=== PATIENT | female | born 1980 | race Caucasian/White ===

== ENCOUNTER 2019-06-03 16:22 | Outpatient (REF) | payer MEDICAID, SELFPAY ==
[2019-06-05 20:50] LABS: SARS-CoV-2 RNA Undetected (Undetected); SARS-CoV-2 Specimen Source Nasopharynx
== END 2019-06-03 16:42 ==
LOC: LBO 16:22
PROVIDERS: PCP Nurse Practitioner Family; Visit Provider Nurse Practitioner Family
DX: Z20.828 Contact with and (suspected) exposure to other viral communicable diseases (principal); J06.9 Acute upper respiratory infection, unspecified
CPT/HCPCS: U0003

== ENCOUNTER 2020-11-01 07:19 | Outpatient (CLI) | payer MEDICAID, SELFPAY ==
--- NOTE | 2020-11-01 08:30 | RT.EKG_ITS ---
APPROVED REPORT Exam: Resting ECG Reason for Exam: High Risk Medication Patient Location: O HR:76 bpm ECG Measurements Heart Rate 76 AXIS SD 139 P 56 QRSd 100 QRS -24 QT 369 T 37 QTc 416 Conclusion Sinus rhythm...normal P axis, V-rate 60- 99 Low voltage, precordial leads...precordial leads <1.0mV
== END 2020-11-01 07:20 | disposition home or self-care (01) ==
LOC: RT 07:58
PROVIDERS: PCP Nurse Practitioner Family; Visit Provider Family Medicine
DX: Z79.899 Other long term (current) drug therapy (principal)
CPT/HCPCS: 93005; 93010

== ENCOUNTER 2021-05-07 09:07 | Emergency (ER) | payer MEDICAID, SELFPAY ==
[2021-05-07 09:09] VITALS: BP 135/90; PULSE 96; RESP 14; TEMP 36.2; O2SAT 100
[2021-05-07] MEDS: ACETAMINOPHEN 1,000 MG/100 ML BTL 400 MG IVPB (09:30)
[2021-05-07] MEDS: Omnipaque 350 MG/ML 100 ML BTL IJ (09:36)
--- NOTE | 2021-05-07 09:36 | W.ED.GENAD ---
Discharge Plan Disposition Patient Disposition: HOME Condition: Stable Discharge Details Clinical Impression: Abscess, dental Primary Care Provider: Staci Ponce ED Provider: Beti Jamison Home Meds and New Rx's Prescriptions: New clindamycin HCl 150 mg capsule 450 mg PO TID Qty: 90 0RF Continued methadone [Methadone Intensol] 10 mg/mL Concentrate 105 mg PO DAILY 0RF Discharge Instructions Instructions: Dental Abscess (ED) Additional Instructions: Take the antibiotic, 3 tablets every 8 hours Gargle with warm salt water once an hour Light massage to your right cheek Call your dentist and let them know you have a large abscess and need to be reassessed this week If they are unable to see you, I given you a list of other resources Please return immediately with worsening difficulty opening your jaw, difficulty swallowing, fever, chest pain, or shortness of breath Ibuprofen and Tylenol for pain control Stand Alone Forms: Work Release Referrals: Staci Ponce, [employer] [Primary Care Provider] - 1 day Discharge Data Discharge Date/Time-TO BE ENTERED AT DEPARTURE: 05/07/21 11:21 Medical Decision Making Placed on clindamycin 450 mg 3 times daily Dental history CT results were reviewed, low suspicion for periorbital cellulitis suspect dental origin, attempt made to drain the site, approximately 1 cc fluid, blood-tinged noted Tolerated procedure without incident No proptosis, no crepitus Afebrile nontoxic, discharged home in stable condition with stable vitals Return precautions discussed and patient expressed understanding No evidence of [place]'s angina Medical Records Medical records reviewed: Yes I reviewed the patient's medical records. Lab Data Lab results reviewed: Yes I reviewed the patient's lab results. HPI General Date/Time Provider Initiated Documentation: 05/07/21 09:15. HPI Narrative: This 40-year-old female presents with reports of facial swelling and dental pain that began yesterday. She awoke with significant swelling to the right side of her face today. Patient denies any fever or chills. She took her methadone prior to arrival. Denies chance of . States she has pain but is able to open and close her jaw. Denies any difficulty swallowing or drooling. Otherwise reportedly healthy. Denies known injury. Denies chest pain or shortness of breath. Denies recent IV drug abuse. Related Data Home Medications Medication Instructions Recorded Confirmed clindamycin HCl 150 mg capsule 450 mg PO TID #90 cap 05/07/21 methadone 10 mg/mL oral 105 mg PO DAILY 05/07/21 05/07/21 concentrate (Methadone Intensol) Previous Rx's Medication Instructions Recorded clindamycin HCl 150 mg capsule 450 mg PO TID #90 cap 05/07/21 Allergies Allergy/AdvReac Type Severity Reaction Status Date / Time morphine Allergy Severe hives,mouth Unverified 05/07/21 09:12 and throat swell Sulfa (Sulfonamide Allergy Severe hives Unverified 05/07/21 09:12 Antibiotics) latex Allergy Intermediate rash Unverified 05/07/21 09:12 General Stated Complaint: DentalOral MUSTAPHA: 5 Review of Systems All systems reviewed & are unremarkable except as noted in HPI and below PFSH All Active Problems (Updated 05/07/21 @ 10:52 by BETTIE Garcia) Abscess, dental (Acute) Social History Smoking/Tobacco Use Status: Current every day Tobacco Type: cigarettes Smoking risk assessment performed?: Yes Alcohol Intake: never Drug use: Occasionally Substance use type: marijuana Do you feel safe at home: Yes Do you feel safe in your relationship?: Yes Exam Const General: cooperative and no acute distress [facility] Head images: 1. Swelling, no trismus, suspect to #6, widespread dental decay, no palpable fluctuance or evidence of soft palate induration, no drooling, uvula midline, right submandibular lymphadenopathy Neck Other: No stridor Resp Effort & Inspection: normal respiratory effort Cardio Rate: regular rate Course Vital Signs Vital signs: Vital Signs Temperature 36.2 C L 05/07/21 09:09 Pulse 96 H 05/07/21 09:09 Respiratory Rate 14 05/07/21 09:09 Blood Pressure 135/90 05/07/21 09:09 Pulse Oximetry 100 05/07/21 09:09 Temperature 36.2 C L 05/07/21 09:09 Temperature Source Temporal Artery Scan 05/07/21 09:09 Pulse 96 H 05/07/21 09:09 Respiratory Rate 14 05/07/21 09:09 Respiratory Effort Non-Labored 05/07/21 09:11 Blood Pressure 135/90 05/07/21 09:09 Blood Pressure Position Sitting 05/07/21 09:09 Pulse Oximetry 100 05/07/21 09:09 Oxygen Delivery Method Room Air 05/07/21 09:09 Oxygen Flow Rate 0 05/07/21 09:09 Pain Level 4 05/07/21 09:09 Procedures Abscess I/D Site: Other Side (if applicable): Right Local Anesthetic: Lidocaine 1% Amount of anesthesia used (mL): 1 Amount of fluid expressed (mL): 1
[2021-05-07 09:40] LABS: Abs Immature Grans 0.04 10^3/uL (0.0-0.06); Absolute Basophil Count 0.02 10^3/uL (0.0-0.2); Absolute Lymphocyte Count 3.46 10^3/uL (1.2-3.4); Absolute Monocyte Count 0.62 10^3/uL (0.1-0.8); Basophils % 0.2; Eosinophils % 2.7; HCT 43.6 % (36.0-46.0); Immature Grans % 0.4; Lymphocytes % 30.7; MCHC 32.1 % (32.0-36.0); MCV 96.7 fL (80-95); MPV 9.8 fL (8.0-11.0); Monocytes % 5.5; Neutrophils % 60.5; Nucleated RBC 0 %; Platelet Count 306 10^3/uL (130-400); RBC 4.51 10^6/uL (3.93-5.22); RDW 12.5 % (11.7-14.6); RDW-SD 44.5 fL; WBC 11.28 10^3/uL (4.4-10.8)
[2021-05-07 09:42] LABS: Absolute Neutrophil Count 6.82 10^3/uL (1.2-6.7)
[2021-05-07] MEDS: CLINDAMYCIN 900 MG/50 ML BAG 50 MG IVPB (09:53)
--- NOTE | 2021-05-07 09:53 | DI.CT_ITS ---
Exam(s) CT FACIAL W EXAM: CT FACIAL W CLINICAL HISTORY: right maxillary facial swelling extending to orbit. TECHNIQUE: Imaging Protocol: Axial computed tomography images with coronal and sagittal reformatted images were created and reviewed CONTRAST MATERIAL: Intravenous: Omnipaque 350 Contrast volume:100 mL COMPARISON: No exams were available for comparison FINDINGS: Facial Bones: No definite fracture is noted in facial bones. Poor dentition is present with multiple dental caries noted. An odontogenic origin cannot be entirely excluded. Please see below. Sinuses and Mastoids: Unremarkable. Globes, extraocular muscles, optic nerves and retrobulbar fat: Normal. Upper aerodigestive tract: Normal. Mandible and bilateral temporomandibular joints: Normal. Soft tissues: Limit or stranding is seen in the soft tissues lateral to the right masseter and right maxilla. No focal fluid collection is seen to suggest an abscess. There is overlying skin thickenin g present. The inflammatory changes extend superiorly to the level of the right infraorbital ridge. Mild periorbital soft tissue swelling is seen. There does not appear to be extension into the retro -orbital soft tissues. Enhancement: No abnormal enhancement. IMPRESSION: 1. Right-sided facial inflammatory changes a cellulitis. No focal fluid collection is seen to sugges t an abscess. 2. Multiple dental caries are noted. An odontogenic origin for the soft tissue inflammatory changes cannot be entirely excluded. RADIATION DOSE DELIVERED: 510.09mGy.cm Total DLP DATA REPOSITORY: All CT scans at this facility are submitted to the National Radiology Data Registry (NRDR) Dose Index Registry (DIR) with the [employer] (ACR). RADIATION OPTIMIZATION: All CT scans at this facility use at least one of these dose optimization te chniques: automated exposure control; mA and/or kV adjustment per patient size (includes targeted exa ms where dose is matched to clinical indication); or iterative reconstruction.
[2021-05-07 10:07] LABS: ALT 33 U/L (14-59); AST 20 U/L (15-37); Albumin 3.5 g/dL (3.4-5.0); Alkaline Phosphatase 96 U/L (46-116); Anion Gap 8.1 mmol/L (3-11); BUN 6 mg/dL (7-18); Bilirubin, Total 0.5 mg/dL (0.2-1.0); CO2 27.9 mmol/L (21.0-32.0); CREATININE 0.9 mg/dL (0.55-1.02); Calcium 8.5 mg/dL (8.5-10.1); Chloride 101 mmol/L (98-107); Glucose 115 mg/dL (74-106); Potassium 3.6 mmol/L (3.5-5.1); Sodium 137 mmol/L (136-145); Total Protein 7.6 g/dL (6.4-8.2)
--- NOTE | 2021-05-07 10:07 | DI.VRAD_ITS ---
PROCEDURE INFORMATION: Exam: CT Maxillofacial With Contrast Exam date and time: 05/07/2021 9:24 AM Age: 40 years old Clinical indication: Face pain; Patient HX: RT face swelling 2 days TECHNIQUE: Imaging protocol: Computed tomography images of the face with intravenous contrast. Radiation optimization: All CT scans at this facility use at least one of these dose optimization techniques: automated exposure control; mA and/or kV adjustment per patient size (includes targeted exams where dose is matched to clinical indication); or iterative reconstruction. Contrast material: OMNI 350; Contrast volume: 100 ml; Contrast route: INTRAVENOUS (IV); COMPARISON: No relevant prior studies available. FINDINGS: Orbital cavity: See Soft tissues finding. Bones/joints: No acute fracture. 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 Soft tissues: There is prominent soft tissue swelling and skin thickening overlying the right infra orbital ridge. The soft tissue inflammatory change does not extend posterior to the orbital septum. The right retro-orbital fat is clear. The right globe is intact. The left orbit is unremarkable. There is some mild inflammatory change in the subcutaneous soft tissues noted just lateral to the right masseter muscle as well. No organized fluid collection present at this time. Poor dentition is present with multiple caries noted. However no inflammatory changes appear to be emanating from an odontogenic origin. IMPRESSION: 1. Right-sided periorbital cellulitis without evidence of abscess formation or retro-orbital extension. 2. Mild inflammatory changes in the right cheek subcutaneous soft tissues without evidence of abscess formation. This may be an inferior extension of the previously described periorbital cellulitis. Dictated and Authenticated by: Morgan Zuleta MD. Ordering:ZOYA Bang MD
[2021-05-07] MEDS: Benzocaine 20% Gel 30 GM JAR MM (10:25)
[2021-05-07 11:00] VITALS: BP 105/79; PULSE 73; TEMP 36.4; O2SAT 97
== END 2021-05-07 11:21 | disposition home or self-care (01) ==
PROVIDERS: Emergency Provider Physician Assistant; PCP Nurse Practitioner Family
DX: K04.7 Periapical abscess without sinus (principal); R22.0 Localized swelling, mass and lump, head
CPT/HCPCS: 41800; 80053; 99285; 70487; 85025; 99283; J0131; J3490

== ENCOUNTER 2024-10-13 09:05 | Outpatient (CLI) | payer MEDICAID, SELFPAY ==
--- NOTE | 2024-10-13 | DI.MAMMO_ITS ---
Exam(s) MAMMO SCREENING EXAM: MAMMO SCREENING CLINICAL HISTORY: SCREENING, Z12.31 TECHNIQUE: Bilateral full field digital CC and MLO mammographic images were obtained with 3D tomosynthesis and utilizing computer aided detection (CAD). COMPARISON: Comparison is made with prior examinations. FINDINGS: Masses/Architectural Distortion: No suspicious masses or areas of architectural distortion are present. Microcalcifications: No suspicious pleomorphic-type are seen. Skin Thickening/Nipple Retraction: None. IMPRESSION: 1. No significant interval change with no specific features of malignancy noted. 2. Unless there is more urgent need, screening mammography is recommended, as per [place] [employer] guidelines. BI-RADS Category 1 - Negative Breast Density - Category B - There are scattered areas of fibroglandular density. Breast density Category C or D implies that the patient has dense breast tissue. Dense breast tissue can make it harder to find cancer on a mammogram. Dense breast tissue is also associated with an increased risk of breast cancer. This information about the result of the mammogram report was provided to the patient to raise their awareness. Use this report when you speak with the patient about their risks for breast cancer, which includes their family history. At that time, you may recommend additional screening tests (Ultrasound or MRI) as these tests may add significant information. A negative radiographic report should not delay biopsy if a dominant or clinically suspicious mass is present. Up to ten percent of cancers are not identified on mammography. A negative report may reinforce clinical impression. Adenosis and dense breasts may obscure an underlying neoplasm. False positive reports average 6 to 10%. Patient will receive a letter notifying them of these results.
== END 2024-10-13 09:25 ==
PROVIDERS: PCP Nurse Practitioner Family; Visit Provider Nurse Practitioner Family
DX: Z12.31 Encounter for screening mammogram for malignant neoplasm of breast (principal); R92.323 Mammographic fibroglandular density, bilateral breasts
CPT/HCPCS: 77063; 77067

== ENCOUNTER 2025-03-04 09:20 | Emergency (ER) | payer MEDICAID, SELFPAY ==
[2025-03-04] VITALS (15 sets, daily range): BP systolic 111–167; BP diastolic 53–87; PULSE 90–114; RESP 11–24; TEMP 36.6–36.7; O2SAT 98–99
--- NOTE | 2025-03-04 09:24 | W.ED.GENAD ---
Discharge Plan Disposition Patient Disposition: Home Discharge Details Clinical Impression: Nausea & vomiting, Generalized abdominal pain, Leukocytosis, Asymptomatic microscopic hematuria Primary Care Provider: Thu Randhawa ED Provider: Sebastian Adame Home Meds and New Rx's Prescriptions: New ondansetron 4 mg tablet,disintegrating 4 mg PO Q6H PRNQty: 10 0RF No Action hydroxyzine HCl 25 mg tablet 25 mg PO TID PRN ondansetron 4 mg tablet,disintegrating 4 mg PO Q8H buprenorphine-naloxone [Suboxone] 4-1 mg film 5 film buccal Q24H Rx Instructions: place 1 strip/tab under (each) side of tongue insulin glargine [Lantus Solostar U-100 Insulin] 100 unit/mL (3 mL) insulin pen 20 unit SUBCUT QAM Patient Comments: INJECT 20 UNITS UNDER THE SKIN IN THE MORNING AND 10 UNITS AT BEDTIME Rx Instructions: subcutaneously twice a day; cholecalciferol (vitamin D3) 1,250 mcg (50,000 unit) capsule 1,250 mcg PO .weekly Patient Comments: TAKE 1 CAPSULE BY MOUTH EVERY WEEK FOR VITAMIN D. DEFICIENCY atorvastatin 40 mg tablet 40 mg PO DAILY Patient Comments: TAKE ONE TABLET BY MOUTH EVERY DAY FOR HLD escitalopram oxalate 10 mg tablet 10 mg PO DAILY Patient Comments: TAKE ONE TABLET BY MOUTH EVERY DAY lisinopril-hydrochlorothiazide 20-12.5 mg tablet 1 tab PO DAILY Patient Comments: TAKE ONE TABLET BY MOUTH EVERY DAY FOR HYPERTENSION prazosin 1 mg capsule 1 mg PO QHS PRN Patient Comments: TAKE ONE CAPSULE BY MOUTH AT BEDTIME FOR SLEEP/ANXIETY FOR 30 DAYS Jardiance 10 mg tablet 10 mg PO DAILY Discharge Instructions Instructions: White Blood Cell Count Differential Test, Nausea and Vomiting, Adult ED, Blood in Urine (Hematuria), Adult ED Additional Instructions: As discussed, other than an elevated white blood cell count today your blood work and CT imaging showed no significant acute abnormalities. As such I suspect you likely are dealing with a common stomach bug, would continue to take the Zofran for any nausea or vomiting. However, I would return to the emergency department to develop any new or worsening symptoms such as persistent pain, inability to tolerate food, drink or medications, persistent fevers. Please follow-up with your primary care provider regarding your visit to the emergency department today. Be sure to discuss results of all test performed here today to include radiology, and laboratory testing as well as results for any pending cultures. Should your symptoms worsen, or if you develop new concerning symptoms, please return immediately emergency department for further evaluation. Stand Alone Forms: Portal Information HPI General Date/Time Provider Initiated Documentation: 03/04/25 09:21. HPI Narrative: MDM/Narrative: 44-year-old female past med history of diabetes, lupus, presents for 4 days of nausea vomiting diarrhea, generalized abdominal pain. Vital signs notable for tachycardia, physical exam noted for diffusely tender abdomen, with no rebound guarding rigidity. Given patient's medical comorbidities, concern for possible infectious etiology of her symptoms such as acute appendicitis, pancreatitis, cholecystitis, as well as infectious etiology such as ACS, DKA. will obtain screening labs, EKG and CT imaging to rule out acute pathology. ED course: Labs are unremarkable other than an elevated white blood cell count, no evidence of DKA, ACS, and CT imaging shows no acute findings. Patient notes that she feels much better following fluid resuscitation, and Zofran, vital signs are now normalized. Return precautions discussed, patient discharged. Disposition: home HPI: 44-year-old female past medical history of diabetes, lupus, 4 days of nausea vomiting diarrhea, generalized abdominal pain. She denies any associated fever, chills, rash, hematemesis, melena or any other new or concerning symptoms. ROS: Negative besides as mentioned above Exam: Gen: A&O NAD HEENT: NCAT, EOMI, not icteric. External ears normal. No rhinorrhea. Moist mucous membranes. Neck: Supple, full range of motion, no observable masses, No meningeal sign. Lungs: No Respiratory distress. CV: RRR, no edema. Abdomen: Soft, nondistended, No rebound tenderness. Diffuse mild tenderness MSK: No joint swelling, no redness. Skin: No rashes, petechiae, lesions. Normal color per patient. Neuro: Normal Gait, Grossly intact. Psych: Appropriate for situation. Rhythm: NSR Rate: [] Gentry: Normal axis Intervals: Normal intervals Other findings: No acute ST segment or T wave changes to suggest acute ischemia. Labs: [] Radiology: PROCEDURE INFORMATION: Exam: CT Abdomen And Pelvis With Contrast Exam date and time: 03/04/2025 10:31 AM Age: 44 years old Clinical indication: Other: Epigastric/ruq pain n/v TECHNIQUE: Imaging protocol: Computed tomography of the abdomen and pelvis with contrast. Contrast material: OMNIPAQUE 350; Contrast volume: 100 ml; Contrast route: INTRAVENOUS (IV); COMPARISON: CR XR PORTABLE CHEST AP 03/04/2025 10:12 AM FINDINGS: Liver: There is a diffuse decrease in hepatic parenchymal density, consistent with fatty infiltration. Gallbladder and biliary ducts: Normal. No calcified stones. No ductal dilation. Pancreas: Normal. No ductal dilation. Spleen: Normal. No splenomegaly. Adrenal glands: Normal. No mass. Kidneys and ureters: Normal. No hydronephrosis. Stomach and bowel: Unremarkable. No obstruction. No mucosal thickening. Appendix: A normal appendix is identified. Intraperitoneal space: Unremarkable. No free air. No significant fluid collection. Vasculature: Unremarkable. No abdominal aortic aneurysm. Lymph nodes: Unremarkable. No enlarged lymph nodes. Urinary bladder: Unremarkable as visualized. Reproductive: There is an IUD in the uterus. The ovaries are normal. Bones/joints: Unremarkable. No acute fracture. Soft tissues: There is a small fat-containing umbilical hernia. HUNTER PINO Preliminary Radiology Report JUNIOR ELECTRICAL ENGINEER (QA) DISCREPANCY? If there is a discrepancy between the preliminary and final interpretation, please notify [facility] via [email or web address]. If you do not have access to our QA portal, call our QA team at [phone] CONFIDENTIALITY STATEMENT This report is intended only for the use of the referring physician, and only in accordance with law, If you received this in error, call [phone] Page 2 of 2 IMPRESSION: No acute findings. Thank you for allowing us to participate in the care of your patient. Dictated and Authenticated by: Melissa Weathers MD Related Data Home Medications ?Medication ?Instructions ?Recorded ?Confirmed hydroxyzine HCl 25 mg tablet 25 mg PO TID PRN 09/30/24 03/04/25 ondansetron 4 mg disintegrating 4 mg PO Q8H 09/30/24 03/04/25 tablet buprenorphine 4 mg-naloxone 1 mg 5 film buccal Q24H 01/21/25 03/04/25 sublingual film (Suboxone) atorvastatin 40 mg tablet 40 mg PO DAILY 03/04/25 03/04/25 cholecalciferol (vitamin D3) 1,250 1,250 mcg PO .weekly 03/04/25 03/04/25 mcg (50,000 unit) capsule empagliflozin 10 mg tablet 10 mg PO DAILY 03/04/25 03/04/25 (Jardiance) escitalopram oxalate 10 mg tablet 10 mg PO DAILY 03/04/25 03/04/25 insulin glargine 100 unit/mL (3 20 unit subcut QAM 03/04/25 03/04/25 mL) subcutaneous pen (Lantus Solostar U-100 Insulin) lisinopril 20 1 tab PO DAILY 03/04/25 03/04/25 mg-hydrochlorothiazide 12.5 mg tablet ondansetron 4 mg disintegrating 4 mg PO Q6H PRN #10 tabs 03/04/25 tablet prazosin 1 mg capsule 1 mg PO QHS PRN 03/04/25 03/04/25 Previous Rx's ?Medication ?Instructions ?Recorded ondansetron 4 mg disintegrating 4 mg PO Q6H PRN #10 tabs 03/04/25 tablet Allergies Allergy/AdvReac Type Severity Reaction Status Date / Time morphine Allergy Severe hives,mouth Verified 03/04/25 09:29 and throat swell Sulfa (Sulfonamide Allergy Severe hives Verified 03/04/25 09:29 Antibiotics) latex Allergy Intermediate rash Verified 03/04/25 09:29 General MUSTAPHA: 5 PFSH All Active Problems (Updated 03/04/25 @ 11:18 by Sebastian Adame MD) Asymptomatic microscopic hematuria (Acute) Leukocytosis (Acute) Generalized abdominal pain (Acute) Nausea & vomiting (Acute) Uses hormone releasing intrauterine device (IUD) for contraception (Acute) Sleep disorder (Acute) Anemia (Chronic) Nicotine dependence (Acute) Insomnia (Acute) Systemic lupus erythematosus (Chronic) Polyneuropathy (Acute) Opioid dependence (Acute) Obesity (Chronic) Social History Smoking/Tobacco Use Status: Current every day Tobacco Type: cigarettes Smoking risk assessment performed?: Yes Alcohol Intake: never Drug use: Occasionally Substance use type: marijuana Do you feel safe at home: Yes Do you feel safe in your relationship?: Yes
[2025-03-04 09:47] LABS: Glucose Negative (Negative)
[2025-03-04 09:53] LABS: BE (Venous) 4 mmol/L (-2-3); HCO3 (Venous) 29 mmol/L (23-28); O2 Sat (Venous) 43 %; TCO2 (Venous) 26 mmol/L (24-29); pCO2 (Venous) 50 mmHg (41-51); pO2 (Venous) 24 mmHg
[2025-03-04 09:55] LABS: Abs Immature Grans 0.07 10^3/uL (0.0-0.06); HCT 45.7 % (36.0-46.0); HGB 14.9 g/dL (11.2-15.7); Immature Grans % 0.5 %; MCH 29.9 pg (27.0-33.0); MCHC 32.6 % (32.0-36.0); MCV 92 fL (80-95); MPV 10.2 fL (8.0-11.0); Platelet Count 323 10^3/uL (130-400); RBC 4.98 10^6/uL (3.93-5.22); RDW 12.6 % (11.7-14.6); RDW-SD 42.0 fL; WBC 14.08 10^3/uL (4.4-10.8)
[2025-03-04] MEDS: Ondansetron 4 MG/2 ML VIAL IVP (09:55)
[2025-03-04] MEDS: Normal Saline 1,000 ML 1000 ML IV ×2 (09:55→10:00)
[2025-03-04 09:56] LABS: C & S Indicated? No; WBC 0-2 HPF (0-5)
--- NOTE | 2025-03-04 10:00 | DI.CT_ITS ---
Exam(s) CT ABDOMEN PELVIS W EXAM: CT ABDOMEN PELVIS W CLINICAL HISTORY: epigastric/RUQ pain n/v. TECHNIQUE: Imaging Protocol: Axial computed tomography images with coronal and sagittal reformatted images were created and reviewed CONTRAST MATERIAL: Intravenous: Omnipaque-350 100cc Oral: None COMPARISON: No exams were available for comparison FINDINGS: VISUALIZED LUNG BASES: No nodules nor pleural effusions evident. ABDOMEN: There is no ascites. LIVER: There are no focal hepatic lesions evident. No dilated intrahepatic ducts. GALLBLADDER/BILIARY: No obvious gallbladder pathology. CBD is not dilated. PANCREAS: There is a small 4 mm hypodensity at the junction of the neck and body of the pancreas. Possibly a small cyst although density measurements register as fat. Multi planar imaging does not reveal that this is typical invagination of adjacent fat into the pancreas. The pancreatic duct is not dilated. There are no pancreatic calcifications. SPLEEN: Spleen is not enlarged. No obvious intrasplenic lesions. Splenic and portal veins are patent. ADRENALS: There are no significant adrenal masses. KIDNEYS:No cysts evident. No solid renal masses. No calculi nor hydronephrosis.. ABDOMINAL AORTA: Abdominal aorta is not enlarged. LYMPH NODES:There is no retroperitoneal nor paraaortic adenopathy. ABDOMINAL WALL: There is a small fat only containing midline umbilical hernia. GI: There is no evidence of bowel obstruction, free air, nor abscess. PELVIS: GI: No evidence of appendicitis.No evidence of sigmoid diverticulitis. LYMPH NODES: There is no intrapelvic nor inguinal adenopathy. REPRODUCTIVE: There is an IUD in satisfactory position in the endometrial canal of the uterus. Ovaries appear age-appropriate. There are no extraovarian adnexal masses and no free fluid in the pelvis. URINARY BLADDER: Mild uniform bladder wall thickening. Pelvic ureters are not dilated. OSSEOUS: No fractures and no significant osseous lesions. Mild disc space narrowing at L3-4 noted and some arthropathy of the right facet joint at L5-S1 the. IMPRESSION: 1. No acute uqiei-tlgthtnln-etienjwheii findings. 2. Incidentally noted is a small 4 mm fat density lesion in the pancreas at the junction of the pancreatic neck and body. The pancreatic duct is not dilated. There is no peripancreatic fluid nor peripancreatic fat streaking. Recommend follow-up pancreatic protocol MRI. 3. Preliminary the right report was reviewed. Final report called to ER physician 03/04/2025 at 1:10 p.m. 4. RADIATION DOSE DELIVERED: 591.45mGy.cm Total DLP DATA REPOSITORY: All CT scans at this facility are submitted to the National Radiology Data Registry (NRDR) Dose Index Registry (DIR) with the [employer] (ACR). RADIATION OPTIMIZATION: All CT scans at this facility use at least one of these dose optimization techniques: automated exposure control; mA and/or kV adjustment per patient size (includes targeted exams where dose is matched to clinical indication); or iterative reconstruction.
--- NOTE | 2025-03-04 10:10 | DI.RAD_ITS ---
Exam(s) XR PORTABLE CHEST AP EXAM: XR PORTABLE CHEST AP CLINICAL HISTORY: vomiting. TECHNIQUE: 2D digital imaging was performed. COMPARISON: No exams were available for comparison FINDINGS: Single AP portable view. Heart size is upper normal. The mediastinum is not widened. Lungs are clear. No infiltrates nor obvious pleural effusions. IMPRESSION: No acute pulmonary findings on this single AP portable view of the chest. DATA REPOSITORY: RADIATION DOSE DELIVERED:
[2025-03-04 10:14] LABS: Beta Hydroxybutyrate 0.27 mmol/L (0.02-0.27)
[2025-03-04] MEDS: Pantoprazole 40 MG VIAL IVP (10:16)
[2025-03-04 10:18] LABS: Lipase 27 U/L (<53); Magnesium 1.9 mg/dL (1.6-2.6)
[2025-03-04 10:20] LABS: ALT 10 U/L (10-49); AST 13 U/L (<34); Albumin 4.6 g/dL (3.2-5.0); Alkaline Phosphatase 108 U/L (46-116); Anion Gap 8.3 mmol/L (3-11); BUN 7 mg/dL (9-23); Bilirubin, Total 0.5 mg/dL (0.2-1.2); CO2 28.7 mmol/L (20.0-31.0); Calcium 9.6 mg/dL (8.3-10.6); Chloride 105 mmol/L (98-107); Glucose 126 mg/dL (74-106); Potassium 3.6 mmol/L (3.5-5.1); Sodium 142 mmol/L (136-145); Total Protein 8.3 g/dL (5.7-8.2)
[2025-03-04 10:26] LABS: Troponin I < 3 ng/L (<35)
[2025-03-04] MEDS: Normal Saline Flush 10 ML SYR IVP (10:27)
[2025-03-04] MEDS: Omnipaque 350 MG/ML 100 ML BTL IJ (10:30)
[2025-03-04] MEDS: Normal Saline - Diluent 50 ML VIAL IJ (10:30)
--- NOTE | 2025-03-04 10:33 | DI.VRAD_ITS ---
PROCEDURE INFORMATION: Exam: XR Chest Exam date and time: 03/04/2025 10:12 AM Age: 44 years old Clinical indication: Other: Vomitting TECHNIQUE: Imaging protocol: Radiologic exam of the chest. Views: 1 view. COMPARISON: No relevant prior studies available. FINDINGS: Lungs: Unremarkable. No consolidation. Pleural spaces: Unremarkable. No pleural effusion. No pneumothorax. Heart/Mediastinum: Unremarkable. No cardiomegaly. Bones/joints: Unremarkable. IMPRESSION: No acute findings. Dictated and Authenticated by: Melissa Weathers MD. Orderin Wendi Cortes MD
[2025-03-04 10:35] LABS: COVID-19 PCR Negative (Negative); RSV PCR Negative (Negative)
--- NOTE | 2025-03-04 10:46 | DI.VRAD_ITS ---
PROCEDURE INFORMATION: Exam: CT Abdomen And Pelvis With Contrast Exam date and time: 03/04/2025 10:31 AM Age: 44 years old Clinical indication: Other: Epigastric/ruq pain n/v TECHNIQUE: Imaging protocol: Computed tomography of the abdomen and pelvis with contrast. Contrast material: OMNIPAQUE 350; Contrast volume: 100 ml; Contrast route: INTRAVENOUS (IV); COMPARISON: CR XR PORTABLE CHEST AP 03/04/2025 10:12 AM FINDINGS: Liver: There is a diffuse decrease in hepatic parenchymal density, consistent with fatty infiltration. Gallbladder and biliary ducts: Normal. No calcified stones. No ductal dilation. Pancreas: Normal. No ductal dilation. Spleen: Normal. No splenomegaly. Adrenal glands: Normal. No mass. Kidneys and ureters: Normal. No hydronephrosis. Stomach and bowel: Unremarkable. No obstruction. No mucosal thickening. Appendix: A normal appendix is identified. Intraperitoneal space: Unremarkable. No free air. No significant fluid collection. Vasculature: Unremarkable. No abdominal aortic aneurysm. Lymph nodes: Unremarkable. No enlarged lymph nodes. Urinary bladder: Unremarkable as visualized. Reproductive: There is an IUD in the uterus. The ovaries are normal. Bones/joints: Unremarkable. No acute fracture. Soft tissues: There is a small fat-containing umbilical hernia. IMPRESSION: No acute findings. Dictated and Authenticated by: Melissa Weathers MD. Orderin Wendi Cortes MD
[2025-03-04 11:21] LABS: Troponin I < 3 ng/L (<35)
== END 2025-03-04 11:36 | disposition home or self-care (01) ==
PROVIDERS: Emergency Provider General Practice; PCP Nurse Practitioner Family
DX: R31.21 Asymptomatic microscopic hematuria (principal); D72.829 Elevated white blood cell count, unspecified; R10.84 Generalized abdominal pain; R11.2 Nausea with vomiting, unspecified
CPT/HCPCS: 36415; 36416; 80053; 81025; 82010; 82805; 82962; 83690; 87637; 96361; 96374; 96375; 99285; 71045; 74177; 81003; 81015; 83605; 83735; 84484; 85025; 99284; J2405; J2470; J3490